=== PATIENT | female | born 2005 | race Two or more races ===

== ENCOUNTER 2023-09-21 10:57 | Emergency (ER) | payer MEDICAID, OTHER ==
[~2023-09-21] VITALS: Ht 152.4 cm; Wt 104.3 kg
[~2023-09-21 10:57] MED LIST: EPIN0.1I11 IJ
[2023-09-21 11:37] LABS: Urine Bacteria None Seen /hpf (None Seen); Urine WBC None Seen /hpf (0 - 5)
[2023-09-21 11:44] LABS: Urine Blood 3+ /uL (Negative); Urine Clarity Ex.Turbid (Clear); Urine Protein, UAD 3+ (Negative); Urine Specific Gravity 1.026 (1.001-1.035); Urine Urobilinogen Normal (Negative); Urine pH 6.5 (5.0-9.0)
[2023-09-21 11:51] LABS: Urine Color Red (Yellow)
[2023-09-21 12:02] LABS: Hemoglobin 13.9 g/dL (12.2-16.2); Monocytes # (auto) 0.5 10 ^3/uL (0-1.3); Monocytes % (auto) 4.4 % (0.0-12.0); Nucleated Red Blood Cells % 0.1 %
[2023-09-21 12:04] LABS: Basophils # (auto) 0 10 ^3/uL (0-0.2); Basophils % (auto) 0.3 % (0.0-2.0); Eosinophils # (auto) 0.5 10 ^3/uL (0-0.8); Eosinophils % (auto) 4.6 % (0.0-7.0); Hematocrit 40.7 % (36.0-46.0); Lymphocytes # (auto) 2.9 10 ^3/uL (0.4-5.4); Lymphocytes % (auto) 25.8 % (10.0-50.0); Mean Corpuscular Hemoglobin 27.1 pg (28.0-32.0); Mean Corpuscular Hgb Conc. 34.2 g/dL (32.0-36.0); Mean Corpuscular Volume 79.1 fL (80.0-100.0); Neutrophils # (auto) 7.4 10 ^3/uL (1.6-8.6); Neutrophils % (auto) 64.9 % (37.0-80.0); Red Blood Cells 5.15 10^6/uL (4.0-5.20); Red Cell Distribution Width 13.8 % (11.8-14.3); White Blood Cell 11.3 10^3/uL (4.4-10.8)
[2023-09-21 12:22] LABS: Chloride 106 mmol/L (98-107); Potassium 3.6 mmol/L (3.5-5.1); Sodium 137 mmol/L (136-145)
[2023-09-21 12:23] LABS: Anion Gap 5 (5-15); Carbon Dioxide 26 mmol/L (20-30)
[2023-09-21 12:24] LABS: Calcium 9.6 mg/dL (8.5-10.1)
[2023-09-21 12:28] LABS: Glucose 103 mg/dL (74-106)
[2023-09-21 12:31] LABS: BUN/Creatinine Ratio 10.9 (10.0-20.0); Blood Urea Nitrogen < 5 mg/dL (9-23)
[2023-09-21] MEDS: ACETAMINOPHEN/CODEINE#3 (300/30mg) TAB PO ONE (12:35)
[2023-09-21 14:36] VITALS: BP 105/78; PULSE 80; RESP 20; TEMP 98.6; O2SAT 100
== END 2023-09-21 14:39 | disposition home or self-care (01) ==
LOC: ER 10:57
DX: N92.5 Other specified irregular menstruation (principal); R10.2 Pelvic and perineal pain
CPT/HCPCS: 36415; 80048; 81001; 84702; 85025